=== PATIENT | female | born 1960 | race Caucasian/White ===

== ENCOUNTER 2016-11-29 10:44 | Outpatient (CLI) | payer OTHER | END 2016-11-29 11:00 | LOC: LABRHC 10:44 | PROVIDERS: ATTEND Family Medicine | DX: Z01.419 Encounter for gynecological examination (general) (routine) without abnormal findings (principal) | CPT/HCPCS: 88148; G0143 ==

== ENCOUNTER 2017-05-24 12:44 | Outpatient (CLI) | payer OTHER ==
--- NOTE | 2017-05-24 15:17 | Diagnostic Imaging Report ---
YOLIS MARLOW [facility] [address] [facility] [address] [address] Report Submission Date: May 24, 2017 1:24:40 PM MANAGER LAND Patient Study Name: AMY SHAFFER Date: May 24, 2017 12:52:00 PM MANAGER LAND Modality Type: CR Gender: F Description: PELVIS : 64 Institution: [facility] Physician: YOLIS MARLOW Examination: Plain film hip History: Hip discomfort Comparison exams: None provided Findings: 2 views of the hip demonstrates mild articular degenerative spurring. No fracture no dislocation. No soft tissue abnormality. Impression: Degenerative changes. No acute appearing osseous abnormality. Electronically signed on May 24, 2017 1:24:40 PM MANAGER LAND by: Tom DOMINGO
== END 2017-05-24 12:48 ==
LOC: RAD 12:44
PROVIDERS: ATTEND Family Medicine
DX: M25.551 Pain in right hip (principal)
CPT/HCPCS: 73502